=== PATIENT | male | born 1985 | race American Indian/Alaskan Native ===

== ENCOUNTER 2018-05-05 10:21 | Emergency (ER) | payer MEDICAID ==
[2018-05-05 10:30] VITALS: BP 129/91
[2018-05-05] MEDS ORDERED: NACL 0.9% 1000 ML 1,000 ML IV ONE (10:43)
[2018-05-05] MEDS ORDERED: KEPPRA 1,000 MG/NS 0.75% 100ML 1,000 MG/100 ML BAG IV ONE (10:43)
--- NOTE | 2018-05-05 10:48 | Emergency Department Report ---
HPI - General Chief Complaint: Seizure Time Seen by Provider: 05/05/18 10:36 - HPI HPI: 32-year-old -[place] male presents to the emergency department via EMS from home after having a witnessed seizure this morning. Mom was trying to wake him up when he started having some convulsions with his eyes rolling into the back of his head. She says it looked like he was about to bite down on his tongue so she was pulling on his jaw. He is currently awake and responsive but appears fatigued or slightly postictal. He does have a seizure history but his last seizure was about 8 years ago. He says that he was previously on medication but it was stopped about 5 years ago. However it was restarted sometime last year but he has been out of the medication for the past few weeks. He takes Keppra 750 mg twice daily. Also has a history of some type of mood disorder for which he takes 0.25 of Risperdal daily. ED Past Medical Hx - Past Medical History Previous Medical History?: Yes Hx Seizures: Yes - Social History Smoking Status: Never Smoker Substance Use Type: None ED Review of Systems ROS: Stated complaint: SEIZURE Other details as noted in HPI Comment: All other systems reviewed and negative Constitutional: denies: chills, fever Eyes: denies: eye pain, eye discharge ENT: denies: ear pain, throat pain Respiratory: denies: cough, shortness of breath Cardiovascular: denies: chest pain, palpitations Gastrointestinal: denies: abdominal pain, vomiting Genitourinary: denies: dysuria, discharge Musculoskeletal: denies: back pain, arthralgia Skin: denies: rash, lesions Neurological: other (seizure). denies: weakness Physical Exam - Physical Exam Vital Signs: Vital Signs 05/05/18 05/05/18 05/05/18 10:29 10:30 10:31 Temperature 98.8 F Pulse Rate 90 Respiratory 18 Rate Blood Pressure 129/91 O2 Sat by Pulse 100 98 Oximetry Physical Exam: GENERAL: The patient is well-developed well-nourished. HEENT: Normocephalic. Atraumatic. Patient has moist mucous membranes. EYES: Extraocular motions are intact. Pupils are equal and reactive to light bilaterally. No nystagmus. NECK: Supple. Trachea is midline. CHEST/LUNGS: Clear to auscultation. There is no respiratory distress noted. HEART/CARDIOVASCULAR: Regular. There is no tachycardia. There is no obvious murmur. ABDOMEN: Abdomen is soft, nontender. Patient has normal bowel sounds. There is no abdominal distention. SKIN: Skin is warm and dry. NEURO: The patient is awake, alert, and oriented. The patient is cooperative. The patient has no focal neurologic deficits. The patient has normal speech. Cranial nerves II through XII grossly intact. No pronator drift. No dysmetria. MUSCULOSKELETAL: There is no tenderness or deformity. There is no limitation range of motion. There is no evidence of acute injury. ED Course Vital Signs 05/05/18 05/05/18 05/05/18 10:29 10:30 10:31 Temperature 98.8 F Pulse Rate 90 Respiratory 18 Rate Blood Pressure 129/91 O2 Sat by Pulse 100 98 Oximetry ED Medical Decision Making - Lab Data Result diagrams: 05/05/18 10:47 05/05/18 10:47 - EKG Data -: EKG Interpreted by [facility] EKG shows normal: sinus rhythm, axis, intervals, QRS complexes, ST-T waves (early repolarization) - EKG Data When compared to previous EKG there are: previous EKG unavailable Interpretation: other (sinus rhythm, early repolarization) - Radiology Data Radiology results: report reviewed, image reviewed CT of the head without contrast does not show any bleed, shift, mass, ischemia or any other acute process. - Medical Decision Making This patient presents to the emergency department after having a witnessed seizure this morning. He does have a seizure history but it has been years since the patient last had a seizure. For this reason a CT scan of the head was done without contrast that did not show any bleed, shift, mass, ischemia, or any other acute process. EKG did not show any signs of ST elevation CT or dysrhythmia. Labs were unremarkable including CBC, BMP, LFTs, TSH, CK, blood alcohol level, urine drug screen. Patient was loaded with a gram of Keppra. He has an appointment coming up with his neurologist and has good follow-up with primary care. Mom says that he does have some of his medications to mushroom picker at the pharmacy. He was reevaluated multiple times for over 3 hours and has been no return of any seizure-like activity. - Differential Diagnosis epilepsy, dysrhythmia, hypoglycemia Critical Care Time: No Critical care attestation.: If time is entered above; I have spent that time in minutes in the direct care of this critically ill patient, excluding procedure time. ED Disposition Clinical Impression: Seizure disorder Disposition: DC-01 TO HOME OR SELFCARE Is pt being admited?: No Condition: Stable Instructions: Epilepsy (ED) Additional Instructions: Please follow-up with your primary care physician and neurologist. Try and move up your neurology appointment. Return to the emergency Department with any worsening of your symptoms, any further seizure activity, with any acute distress. Referrals: PRIMARY CARE,MD [Primary Care Provider] - [facility] Neurologist, Your [Other] - [facility] Forms: Accompanied Note Time of Disposition: 13:42
[2018-05-05 11:05] LABS: Basophils % (Auto) 0.3 % (0.0-1.8); Eosinophils # (Auto) 0.1 K/mm3 (0.0-0.4); Eosinophils % (Auto) 1.4 % (0.0-4.3); Hematocrit 50.2 % (35.5-45.6); Hemoglobin 17.3 gm/dl (11.8-15.2); Lymphocytes # (Auto) 2.1 K/mm3 (1.2-5.4); Lymphocytes % (Auto) 32.4 % (13.4-35.0); Mean Corpuscular HGB Conc 35 % (32-34); Mean Corpuscular Volume 92 fl (84-94); Monocytes # (Auto) 0.3 K/mm3 (0.0-0.8); Monocytes % (Auto) 4.5 % (0.0-7.3); Red Blood Count 5.47 M/mm3 (3.65-5.03); Red Cell Distribution Width 13.5 % (13.2-15.2)
[2018-05-05 11:07] LABS: Platelet Count 36 K/mm3 (140-440)
--- NOTE | 2018-05-05 11:23 | Cat Scan Report ---
CT HEAD WITHOUT CONTRAST: HISTORY: Seizure. TECHNIQUE: Sequential 2.5mm CT images. COMPARISON: none. FINDINGS: Cerebral Parenchyma: Within normal limits. Cerebellum: Within normal limits. Brainstem: Within normal limits. Ventricles: Normal. Sella: Normal. Extra-axial spaces: Normal. Basal Cisterns: Normal. Intracranial Hemorrhage: None. Midline Shift: None. Calvarium: Normal. Sinuses: Normal. Mastoid Air Cells: Normal. Visualized Orbits: Normal. IMPRESSION: Cranial CT scan within normal limits.
[2018-05-05 11:35] LABS: Bilirubin,Urine NEG (Negative); Blood,Urine NEG (Negative); Color,Urine Yellow (Yellow); Mucus,Urine FEW /HPF; Protein,Urine <15 mg/dL mg/dL (Negative); Urobilinogen,Urine < 2.0 mg/dL (<2.0)
[2018-05-05 11:57] LABS: Amphetamine Screen,Urine PRESUMPTIVE NEGATIVE; Benzodiazepines Screen,Urine PRESUMPTIVE NEGATIVE; Cannabinoid Screen,Urine PRESUMPTIVE NEGATIVE; Cocaine Screen,Urine PRESUMPTIVE NEGATIVE; Methadone Screen,Urine PRESUMPTIVE NEGATIVE; Opiate Screen,Urine PRESUMPTIVE NEGATIVE
[2018-05-05 12:16] LABS: Albumin 4.7 g/dL (3.9-5); BUN/Creatinine Ratio 12; Blood Urea Nitrogen 13 mg/dL (9-20); Calcium 9.6 mg/dL (8.4-10.2); Hemolysis Index 34
[2018-05-05 12:17] LABS: Alanine Aminotransferase < 5 units/L (7-56)
== END 2018-05-05 14:06 | disposition home or self-care (01) ==
LOC: ED 10:21
DX: G40.909 Epilepsy, unspecified, not intractable, without status epilepticus (principal)
CPT/HCPCS: 36415; 70450; 80053; 80307; 81001; 82550; 85025; 86308; 93005; 93010; 96374; 99284; G0480; J1953; J7030; 80320